=== PATIENT | female | born 1960 | race Caucasian/White ===

== ENCOUNTER 2018-12-07 06:00 | Day surgery (SDC) | payer BC ==
[2018-12-07] MEDS ORDERED: PROPOFOL 10 MG/ML VIAL IV ONE (06:01)
[2018-12-07] MEDS ORDERED: LIDOCAINE 2% MDV (20MG/ML) 20ML VIAL IV ONE (06:01)
[2018-12-07] MEDS ORDERED: SEVOFLURANE 250 ML INH ONE (06:01)
[2018-12-07] MEDS ORDERED: ONDANSETRON HCL IV 4 MG/2 ML VIAL IVP ONE (06:01)
[2018-12-07] MEDS ORDERED: KETOROLAC 30 MG/ML VIAL IVP ONE (06:01)
[2018-12-07] MEDS ORDERED: RINGERS SOLUTION,LACTATED 1,000 ML IV ONE (07:08)
[2018-12-07] MEDS ORDERED: ACETAMINOPHEN W/ CODEINE 300MG/30MG TABLET PO ONE (08:40)
--- NOTE | 2018-12-08 09:20 | Operative Note ---
DATE OF SURGERY: 12/07/2018 PREOPERATIVE DIAGNOSIS: Postmenopausal bleeding. POSTOPERATIVE DIAGNOSIS: Postmenopausal bleeding. OPERATION: Diagnostic hysteroscopy, D&C with nabothian cyst removal. SURGEON: Mallory Anand DO ANESTHESIA: General. COMPLICATIONS: None. ESTIMATED BLOOD LOSS: Minimal. PROCEDURE: The patient was prepped for surgery and brought back to the operative suite. She was placed under general anesthesia. She was sterilely prepped and draped in the dorsal lithotomy position. A weighted speculum was placed in the vaginal vault. A single-tooth tenaculum was used to picker tender the anterior lip of the cervix. The cervix was serially dilated to 14-[place]. The hysteroscope was then placed. The endometrium was atrophic. There was a nabothian cyst noted. That was grasped and removed. Silver nitrate was used to touch up the biopsy site. The tenaculum was removed. There was no bleeding noted. The weighted speculum was removed. The patient was awoken from general anesthesia and brought back to recovery room in satisfactory condition. DANTE
== END 2018-12-07 08:55 | disposition home or self-care (01) ==
LOC: SUR 06:00
PROVIDERS: ATTEND Obstetrics & Gynecology
DX: N95.0 Postmenopausal bleeding (principal); M19.90 Unspecified osteoarthritis, unspecified site
CPT/HCPCS: J1885; J2405; J7120